=== PATIENT | female | born 1950 | race Caucasian/White ===

== ENCOUNTER 2023-01-02 18:21 | Emergency (ER) | payer MEDICARE, SELFPAY ==
--- NOTE | ~2023-01-02 | XR_ITS ---
EXAMINATION: Left shoulder and left humerus. CLINICAL INDICATIONS: Status post fall. COMPARISON: None. TECHNIQUE: Left shoulder 3 views and left humerus 2 views. FINDINGS: LEFT SHOULDER: There is mild loss of glenohumeral and AC joint space. No visible acute fracture, dislocation or subluxation seen. There is calcification seen at insertion of rotator cuff likely calcific tendinitis. LEFT HUMERUS: Visualized bony cortex in the medial of the left humerus is normal. No fracture or periosteal elevation. The soft tissues are normal. XR/XR humerus LT IMPRESSION: Mild degenerative changes left AC joint and glenohumeral joint. No acute fracture or dislocation. Suspect left rotator cuff tendinitis. Unremarkable left humerus.
--- NOTE | ~2023-01-02 | XR_ITS ---
EXAMINATION: Left shoulder and left humerus. CLINICAL INDICATIONS: Status post fall. COMPARISON: None. TECHNIQUE: Left shoulder 3 views and left humerus 2 views. FINDINGS: LEFT SHOULDER: There is mild loss of glenohumeral and AC joint space. No visible acute fracture, dislocation or subluxation seen. There is calcification seen at insertion of rotator cuff likely calcific tendinitis. LEFT HUMERUS: Visualized bony cortex in the medial of the left humerus is normal. No fracture or periosteal elevation. The soft tissues are normal. XR/XR shoulder LT min 2V IMPRESSION: Mild degenerative changes left AC joint and glenohumeral joint. No acute fracture or dislocation. Suspect left rotator cuff tendinitis. Unremarkable left humerus.
--- NOTE | 2023-01-02 19:06 | ED_ITS ---
HPI - Fall General Chief Complaint: Fall Stated Complaint: left shoulder injury/ parkinsons Time Seen by Provider: 01/02/23 21:41 Source: patient and family () Mode of arrival: ambulatory Limitations: no limitations History of Present Illness HPI Narrative: 72-year-old female who presents emergency department for evaluation of left shoulder pain after falling. The patient has a history of Parkinson's disease and she states that she has been falling frequently over the past month and has injured her left shoulder and ribs earlier in the month after a fall. Patient states that she has dyskinesia, stepped backwards, lost her balance and fell onto her left shoulder. She denied any head injury or loss of consciousness. She states she is having severe pain in her left shoulder which is worse with movement. She took tramadol for pain prior to coming to the emergency department Related Data Allergies Allergy/AdvReac Type Severity Reaction Status Date / Time No Known Allergies Allergy Verified 01/02/23 19:05 Review of Systems Review of Systems: Yes all other systems are reviewed and are negative [facility] Social History Social History Alcohol intake: never Smoked in Last 30 Days: No Use of substances other than those prescribed or required for medical reasons: No Advance Directives: No Advance Directives Information Provided: No Physical Exam Vital Signs: Vital Signs: Last Vital Signs Temp 97.9 F 01/02/23 19:09 Pulse 73 01/02/23 19:09 Resp 17 01/02/23 19:09 BP 172/102 H 01/02/23 19:09 Pulse Ox 98 01/02/23 19:09 O2 Del Method Room Air 01/02/23 19:09 BMI result Body Mass Index 23.9 Const: Other: General:Awake, alert, female patient, pleasant, cooperative, does not appear to be in distress HEENT: Head is normal cephalic and atraumatic, pupils equal round reactive light Chest: No chest wall tenderness Abdomen: No abdominal tenderness Back: No vertebral tenderness or paraspinal muscle tenderness Extremities: Patient has tenderness palpation of her left shoulder and left humerus. Range of motion is limited secondary to her Parkinson disease. Course Course Course Narrative: RME - 72 yo female with history of Parkinson's disease, dyskinesia, recurrent falls who presents to the ER for evaluation of LUE pain s/p recurrent falls onto her left side. She has fallen 4 times in the last 3 weeks. Saw her PCP and fractured 9th rib on the left. Today fell again onto left shoulder. Severe pain in the shoulder, upper back, elbow with limited ROM. Plan: XR shoulder and elbow Medical Decision Making Medical Decision Making MDM Narrative: 72-year-old female with history of Parkinson's disease who fell landing on her left shoulder. Patient's physical examination did reveal left shoulder left humerus pain. X-rays were obtained and revealed no acute fracture. Differential Diagnosis The differential diagnosis includes was not limited to left shoulder fracture, left humerus fracture, left shoulder contusion, left humerus contusion Independent Interpretation I performed an independent interpretation of an: Plain X-Ray Interpretation: My interpretation of the patient's left shoulder left units x-ray follow-up: No acute fracture Radiology Impression Discussion of test interpretation with radiology: I have reviewed the radiologist's reading. Radiologist Impression: XR shoulder LT min 2V IMPRESSION: Mild degenerative changes left AC joint and glenohumeral joint. No acute fracture or dislocation. Suspect left rotator cuff tendinitis. Unremarkable left humerus. Dictated By:Sridhar Wild MD Independent Historian Clinical information obtained from an independent historian. History obtained from or confirmed by: Spouse Prescription Management I considered prescription management with: Pain Medication Chronic Conditions Patient?s care impacted by: Other (Parkinson disease) Discharge Plan Discharge Clinical Impression: Contusion of left shoulder, initial encounter Fall Qualifiers: Encounter type: initial encounter Qualified Code(s): W19.XXXA - Unspecified fall, initial encounter Patient Disposition: Home, Self-Care Additional Instructions: The x-ray of your left shoulder revealed no broken bones which is very reassuring You most likely have a bruise to your shoulder which is causing her pain. Take ibuprofen 200 mg pills, 1 pills every 6 hours as needed for pain. Take Tylenol (acetaminophen) 325 mg pills, 2 pills every 6 hours as needed for pain. You can continue to take your tramadol as prescribed by your doctor for pain. You can take this medication with ibuprofen and with Tylenol. Follow-up with your doctor in 2 days. Please return to the emergency department if your symptoms get worse or if you develop any symptoms that are concerning to you.
[2023-01-02 19:09] VITALS: BP 172/102; PULSE 73; RESP 17; TEMP 36.6; O2SAT 98; BMI 23.9
--- NOTE | 2023-01-02 21:56 | PC.NURSE ---
nurse called to room pt stated that she wants sling removed as she has parkinson's, and absolutely needs to move my arm . sling removed, pending MD Keshawn whiteside
[2023-01-02 22:00] VITALS: BP 177/99; PULSE 94; RESP 18; O2SAT 97
--- NOTE | 2023-01-02 22:00 | PC.NURSE ---
per MD Liao, sling no longer necessary for pt given medical history.
== END 2023-01-02 22:06 | disposition home or self-care (01) ==
PROVIDERS: Emergency Provider Emergency Medicine Emergency Medical Services; PCP Internal Medicine
DX: S40.012A Contusion of left shoulder, initial encounter (principal); W01.0XXA Fall on same level from slipping, tripping and stumbling without subsequent striking against object, initial encounter; G20 Parkinson's disease; R29.6 Repeated falls; Z91.81 History of falling; Y93.9 Activity, unspecified; Y92.9 Unspecified place or not applicable; Y99.9 Unspecified external cause status
CPT/HCPCS: 73030; 73060; 99283; 99284

== ENCOUNTER 2024-01-04 10:50 | Emergency (ER) | payer MEDICARE, SELFPAY ==
--- NOTE | ~2024-01-04 | XR_ITS ---
EXAMINATION: XR CHEST CLINICAL INFORMATION: Failure to thrive. COMPARISON: None available. TECHNIQUE: Frontal view of the chest was obtained. FINDINGS: There are generators overlying the right and left chest. Leads extend cranially towards the neck. The heart is normal in size. There is mild calcific atherosclerotic disease of the aorta. There is no consolidation within either lung to indicate pneumonia. No pleural effusion. No pneumothorax. No acute osseous abnormality. XR/XR chest 1V IMPRESSION: No acute cardiopulmonary disease.
--- NOTE | ~2024-01-04 | CT_ITS ---
EXAMINATION: CT head/brain wo IV con CLINICAL INFORMATION: Reason for Exam unsteady gait COMPARISON: None. TECHNIQUE: Contiguous axial imaging was performed from the skull base to vertex without intravenous contrast. Sagittal and coronal reformatted images were obtained. This CT examination was performed using dose optimization techniques as appropriate, variously including the following: * Automated exposure control * Adjustment of mA and/or kV according to patient size (this includes techniques or standardized protocols for targeted exams where dose is matched to indication/reason for exam; i.e. extremities or head) Use of iterative reconstruction technique DLP: 27 mGy-cm FINDINGS: Bifrontal approach deep brain stimulator leads terminate in the subthalamic region bilaterally. Associated streak artifact degrades locoregional evaluation. Within this constraint, no acute intracranial hemorrhage or territorial loss of stevenson-white differentiation. No midline shift. The basal cisterns are preserved. The ventricles and sulci are appropriate in size and configuration for the patient's stated age. Periventricular and subcortical white matter hypodensity is nonspecific but likely represents chronic microvascular ischemic change. No depressed calvarial fracture. The partially visualized paranasal sinuses are well-aerated. The mastoid air cells are essentially clear. Intracranial atherosclerotic calcification is noted. CT/CT head/brain wo IV con IMPRESSION: Bifrontal approach deep brain stimulator leads which terminate in the subthalamic region bilaterally. No acute intracranial hemorrhage or territorial loss of stevenson-white differentiation.
[2024-01-04 10:53] VITALS: BP 172/86; PULSE 81; RESP 16; TEMP 37.1; O2SAT 97; BMI 24.0
[2024-01-04 12:26] LABS: MANUAL DIFF FLAG NO
[2024-01-04 12:27] LABS: Basophils Percent Auto 0.2 % (0-2); Eosinophils Percent Auto 0.5 % (0-4); Hematocrit 37.5 % (37.0-47.0); Imm Gran Abs Auto 0.01 X10*3/uL (0.00-0.03); Imm Gran Pct Auto 0.2 % (0.0-0.4); Lymphocytes Absolute Auto 0.9 X10*3/uL (1.2-4.9); Lymphocytes Percent Auto 14.5 % (20-40); Mean Corpuscular HGB Conc 34.7 g/dl (31.0-35.0); Mean Corpuscular Hemoglobin 30.4 pg (27.0-33.0); Mean Corpuscular Volume 87.6 fL (80.0-98.0); Mean Platelet Volume 9.4 fL (9.4-12.3); Monocytes Absolute Auto 0.4 X10*3/uL (0.1-1.2); Monocytes Percent Auto 6.9 % (2-11); Neutrophils Absolute Auto 4.7 x10*3/uL (2.0-8.3); Neutrophils Percent Auto 77.7 % (45-73); Platelet Count 277 X10*3/uL (160-400); Red Blood Count 4.28 X10*6/uL (4.20-5.50); White Blood Count 6.1 X10*3/uL (4.8-10.8)
[2024-01-04 12:45] LABS: Alanine Aminotransferase < 5 U/L (0-31); Albumin Level 4.1 g/dL (3.5-5.0); Alkaline Phosphatase 123 U/L (39-117); Anion Gap 13 (12-20); Aspartate Amino Transferase 10 U/L (5-31); Bilirubin Total 1.5 mg/dL (0.0-1.0); Blood Urea Nitrogen 16 mg/dL (9-16); Calcium 10.4 mg/dL (8.4-10.2); Carbon Dioxide 26 mmol/L (22-29); Chloride 102 mmol/L (96-108); Creatinine Clr Calc Pharmacy 62.7; Estimated Glomerular Filt Rate > 60; Glucose Random 98 mg/dL (60-115); Potassium 4.5 mmol/L (3.3-5.1); Sodium 136 mmol/L (135-145); Total Protein 6.5 g/dL (6.5-8.0)
[2024-01-04 14:29] LABS: Appearance Urine Clear; Color Urine Dark Yellow; Glucose Urine UA Negative (Negative); Leukocyte Esterase Urine Small (1+) (Negative); Nitrite Urine Negative (Negative); PH 5.5 (5.0-9.0); Specific Gravity - Urine >= 1.030 (1.005-1.025); UMIC TRIGGER UACC YES; Urine Blood Negative (Negative); Urine Ketones 15 mg/dL (Negative); Urine Protein Trace mg/dL (Neg-Trace)
[2024-01-04 14:43] LABS: Bacteria Urine None Seen (None Seen); Calcium Oxalate Crystals Urine Present; Hyaline Casts Urine 0-2 /LPF (0-2); RBC Urine 0-2 /HPF (0-2); Squamous Epithelial Cell Urine 0-2 /HPF (0-2); UACC Culture Trigger YES; WBC Urine 0-5 /HPF (0-5)
--- NOTE | 2024-01-04 20:12 | ED.GENADULT ---
HPI - General Adult General Chief complaint: General Medical Stated complaint: diff moving Time Seen by Provider: 01/04/24 19:52 Source: patient and family (Daughter) Mode of arrival: ambulatory Limitations: no limitations History of Present Illness ED Provider: DR. Enrique HPI narrative: 72-year-old female who presented to the emergency department with her daughter for complaint multiple falls at home and deconditioning, patient with history of Parkinson's disease lives home with her who is unable to care for her, family reported increased cognitive deterioration, worsening of patient's Parkinson's and family seeking placement where patient can get the appropriate help. Last fall was about 3 weeks ago at home causing left arm injury patient has been following with orthopedic for her arm injury. Related Data Home Medications ?Medication ?Instructions ?Recorded ?Confirmed bupropion HCl 100 mg tablet,12 hr 100 mg PO DAILY 01/04/24 01/04/24 sustained-release carbidopa 25 mg-levodopa 100 mg 1 tab PO DIRECTED PRN parkinsons 01/04/24 01/04/24 tablet carbidopa ER 48.75 mg-levodopa 195 2 cap PO Q2H 01/04/24 01/04/24 mg capsule,extended release (Rytary) metoprolol succinate 25 mg 25 mg PO DAILY 01/04/24 01/04/24 tablet,extended release 24 hr Allergies Allergy/AdvReac Type Severity Reaction Status Date / Time amantadine Allergy Unknown Verified 01/04/24 10:56 selegiline Allergy Unknown Verified 01/04/24 10:56 Review of Systems Review of Systems: All other systems are reviewed and are negative Constitutional: Reports as per HPI and Reports no additional constitutional complaints Eyes: Reports as per HPI and Reports no additional eye complaints Reports system reviewed and no additional complaints, except as documented Cardiovascular: Reports as per HPI and Reports no additional cardiovascular complaints Respiratory: Reports as per HPI and Reports no additional respiratory complaints Gastrointestinal: Reports as per HPI and Reports no additional gastrointestinal complaints Genitourinary: Reports no additional female genitourinary complaints Musculoskeletal: Reports no additional musculoskeletal complaints Skin/Breast: Reports system reviewed and no additional complaints, except as docu Psychiatric: Reports no additional psychiatric complaints Endocrine: Reports no additional endocrine complaints Hematologic/Lymphatic: Reports no additional hematologic/lymphatic complaints Allergic/Immunologic: Reports no additional allergic/immunologic complaints Reports system reviewed and no additional complaints, except as documented and Reports Abnormal speech present [facility] Social History Social History Alcohol intake: never Smoked in Last 30 Days: No Use of substances other than those prescribed or required for medical reasons: No Advance Directives: No Advance Directives Information Provided: Yes Do you have a plan to hurt others: No Plan Physical Exam ED Vital Signs: Vital Signs - 24 hr 01/04/24 10:53 01/04/24 21:36 01/04/24 22:30 Temperature 98.8 F 98.2 F 98.7 F Pulse Rate 81 71 72 Respiratory Rate 16 18 16 Blood Pressure 172/86 H 148/61 H 151/72 H Pulse Oximetry 97 96 98 Oxygen Delivery Method Room Air Room Air Room Air BMI result Body Mass Index 24.0 Vital signs have been reviewed and appear to be correct. Blood pressure elevated. Heart rate normal. Respiratory rate normal. Temperature normal. Oxygen saturation normal. Appearance: Alert. Oriented X3. No acute distress. Head: Normal external exam. Normocephalic. Atraumatic. No Cash signs noted. No raccoon eyes noted Eyes: PERRLA. EOMI. Conjunctiva and sclera normal. Eyelids normal. ENT: TM's Normal. Pharynx normal. Uvula midline. Moist mucous membranes. No trismus noted. No drooling noted. No muffled voice noted. Neck: Normal inspection. Neck supple. FROM. No adenopathy. Thyroid Normal. No meningeal signs. No neck mass noted. CVS: Normal heart rate and rhythm. Heart sound normal. No murmurs noted. Pulses normal throughout. Respiratory: No respiratory distress. Painless inspiration. Breath sounds normal. No wheezes/rales/rhonchi noted. Chest nontender. No accessory muscle usage noted or decreased air movement noted. Abdomen: Soft and nontender. Bowel sounds normal in all 4 quadrants. No distention noted. No organomegaly noted. No visible injury noted. Back: No CVA tenderness. Full range of motion noted. Skin: Skin warm and dry. Normal skin color. Normal skin turgor. No rashes/lesions/lacerations noted. Extremities: No lower extremity edema. Extremities exhibit normal range of motion. Extremities nontender. Neuro: Oriented X 3. Cranial nerve exam: II-XII are grossly intact No motor deficit. No sensory deficit. Reflexes normal. Course Reevaluation(s) Reevaluation #1: 73-year-old female with history of Parkinson's and multiple fall at home family reported patient is progressively deconditioning and needs placement. Patient is medically cleared, will start patient on physician observation, case management consultation, PT consultation. Time: 22:00 Medications Administered Generic Name Dose Route Start Last Admin Trade Name Freq PRN Reason Stop Dose Admin Pt Own (Carbidopa- 2 cap 01/04/24 22:00 01/04/24 22:05 Levodopa [Rytary] 48 PO 2 cap .75-195 Mg Capsule, Q2H ANNA Administration Extended Relea Medical Decision Making Differential Diagnosis Differential Diagnoses: The differential diagnosis associated with the presentation includes (UTI, electrolyte derangement, severe anemia, pneumonia, intracranial pathology, medical clearance.) Admission/Observation Consideration of admission/observation: Escalation of care including admission/observation considered Lab Data MDM Lab Attestation statement: I reviewed the patient's lab results. 01/04/24 12:22 01/04/24 12:22 Labs: Lab Results 01/04/24 01/04/24 Range/Units 12:22 14:23 WBC 6.1 (4.8-10.8) X10*3/uL RBC 4.28 (4.20-5.50) X10*6/uL Hgb 13.0 (12.0-16.0) g/dl Hct 37.5 (37.0-47.0) % MCV 87.6 (80.0-98.0) fL MCH 30.4 (27.0-33.0) pg MCHC 34.7 (31.0-35.0) g/dl RDW 13.0 (11.0-16.0) % Plt Count 277 (160-400) X10*3/uL MPV 9.4 (9.4-12.3) fL Immature Gran % (Auto) 0.2 (0.0-0.4) % Neut % (Auto) 77.7 H (45-73) % Lymph % (Auto) 14.5 L (20-40) % [place] % (Auto) 6.9 (2-11) % Eos % (Auto) 0.5 (0-4) % Baso % (Auto) 0.2 (0-2) % Lymph # (Auto) 0.9 L (1.2-4.9) X10*3/uL [place] # (Auto) 0.4 (0.1-1.2) X10*3/uL Eos # (Auto) 0.0 (0.0-0.4) X10*3/uL Baso # (Auto) 0.0 (0.0-0.2) X10*3/uL Abs Immat Gran (auto) 0.01 (0.00-0.03) X10*3/uL Absolute Neuts (auto) 4.7 (2.0-8.3) x10*3/uL Absolute Nucleated RBC 0.000 (0.0-0.012) X10*3/uL Nucleated RBC % (auto) 0.0 (0.0-0.2) /100WBC Sodium 136 (135-145) mmol/L Potassium 4.5 (3.3-5.1) mmol/L Chloride 102 (96-108) mmol/L Carbon Dioxide 26 (22-29) mmol/L Anion Gap 13 (12-20) BUN 16 (9-16) mg/dL Creatinine 0.71 (0.5-1.4) mg/dL Estim Creat Clear Calc 62.7 Estimated GFR > 60 Random Glucose 98 (60-115) mg/dL Calcium 10.4 H (8.4-10.2) mg/dL Total Bilirubin 1.5 H (0.0-1.0) mg/dL AST 10 (5-31) U/L ALT < 5 (0-31) U/L Alkaline Phosphatase 123 H (39-117) U/L Total Protein 6.5 (6.5-8.0) g/dL Albumin 4.1 (3.5-5.0) g/dL Urine Color Dark Yellow Urine Appearance Clear Urine pH 5.5 (5.0-9.0) Ur Specific [place] >= 1.030 H (1.005-1.025) Urine Protein Trace (Neg-Trace) mg/dL Urine Glucose (UA) Negative (Negative) mg/dL Urine Ketones 15 (Negative) mg/dL Urine Blood Negative (Negative) Urine Nitrite Negative (Negative) Ur Leukocyte Esterase Small (1+) H (Negative) Urine RBC 0-2 (0-2) /HPF Urine WBC 0-5 (0-5) /HPF Ur Squamous Epith Cells 0-2 (0-2) /HPF Calcium Oxalate Crystal Present Urine Bacteria None Seen (None Seen) Hyaline Casts 0-2 (0-2) /LPF Independent Interpretation I performed an independent interpretation of an: Plain X-Ray (Chest: No acute intrathoracic pathology.) and CT Scan (Head: Bifrontal approach deep brain stimulator leads which terminate in the subthalamic region bilaterally. No acute intracranial hemorrhage or territorial loss of stevenson-white differentiation. ) Radiology Impression Discussion of test interpretation with radiology: I have reviewed the radiologist's reading. Discharge Plan Discharge Clinical Impression: Adult failure to thrive, Multiple falls, Parkinson's disease Patient Disposition: Still a Patient Prescriptions: No Action bupropion HCl 100 mg tablet sustained-release 12 hr 100 mg PO DAILY metoprolol succinate 25 mg tablet extended release 24 hr 25 mg PO DAILY Rytary 48.75-195 mg capsule, extended release 2 cap PO Q2H carbidopa-levodopa 25-100 mg Tablet 1 tab PO DIRECTED MDD 6 tabs PRN (Reason: parkinsons) Rx Instructions: Take as needed up to 6 tabs per day. Print Language: Kiswahili
[2024-01-04 21:36] VITALS: BP 148/61; PULSE 71; RESP 18; TEMP 36.8; O2SAT 96
--- NOTE | 2024-01-04 21:53 | MHC.CM.ED ---
Addendum entered by Fatou Rachel 01/04/24 22:27: HCP at home. CM requested that bring it in. HCP is Santiago Pimentel ([phone]). Original Note: CM met with patient and family at the request of Dr. Enrique. Pt has had Parkinson's for 30 years. Pt lives with her . She has a walker, rollator and wheelchair. Her bathroom is handicapped accessible. 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 Pt is having increased falls at home, worse over the last 3 weeks. She is very deconditioned, as she is afraid to fall, so she has been moving less. Pt sees a Parkinson's specialist in [place], Dr. Apollo Sutton. Patient and family are requesting more intensive rehab. PT is pending. Will place referrals to acute rehab facilities. Pt also is concerned about her swallowing, as she had some choking recently when eating rice. Pt denies any difficulty with liquids. CM will request a swallow evaluation. CM contact card given to both , Santiago and daughter, Kelin ([phone]). CM will follow for discharge planning.
[2024-01-04 22:30] VITALS: BP 151/72; PULSE 72; RESP 16; TEMP 37.1; O2SAT 98
--- NOTE | 2024-01-04 22:52 | PC.NURSE ---
Addendum entered by Danica Kapadia RN 01/05/24 04:52: Late midnight hour the patient was heard abruptly crying out from her room. Staff immediately responded to the pt's room to assess the situation. The patient was observed laying in bed with her eyes closed, swatting the air in front of her and shouting It's hurting me ! The patient appeared to have been woken by staff at this time, as evidenced by opening her eyes and looking around the room, appearing disoriented. Pt was tearful, reassured that she was safe and active listening was provided. Orientation reassessed and mentation maintained per automobile service writer's initial assessment; once calm pt verbalized to this automobile service writer that she knew she was in the hospital and was able to state the correct year when asked. The patient was able to fall back asleep for a short period after this, though has continued to intermittently cry out this morning. Pt tearful, appearing anxious, stated to automobile service writer I was having a nightmare and I haven't slept in days . Covering Dr. Hooker notified, 1x ativan ordered, discussed with patient who was agreeable to taking. Patient resting in bed on 05:00 rounding. Breathing even and unlabored without distress, RR 16. Original Note: Patient arrived to ED overflow from the main ED at 22:28. Patient is alert, oriented x4, forgetful during conversation requiring some cueing. Soft spoken. Patient here due to frequent falls at home related to PMHx of Parkinson's. Pt's daughter and present at bedside report worsening Parkinson's and cognitive deterioration and are seeking placement/LTC. Mild tremors visible. Patient is on her home Rytary ER q2h as ordered per SEP; this home med was previously verified and barcoded by pharmacy prior to arrival. Pt's daughter provided automobile service writer with pt's home dose of 100mg buproprion. Market Analyst called and spoke with Jamie from pharmacy re: med rec and pt's buproprion; Jamie stated med rec was done by previous ED RN and that pt's buproprion is not stocked and would need to be verified by pharmacy. Market Analyst sent this bottle of medication to pharmacy with pharmacy teacher tonight for barcoding for morning dose. Pt is deconditioned, stand and pivot with 2+ assist from stretcher to bed. Patient reports her left arm is sometimes tender , states it is because of a fall 3 weeks ago; pt following with ortho per MD note. Scattered bruising noted to BUE on arrival, soft to palpation. Pt denies pain or other acute issues at this time. LUE elevated on pillow. RUE used for BPs. VSS. +Radial and dp pulses. -edema. Breathing is even and unlabored without distress on RA. Patient reports difficulty chewing/swallowing some foods, states most recently rice, and reports that she does okay with water with a straw and taking her medications one at a time. Nursing bedside swallow done on arrival, pt passed it without issue. Purewick placed for voiding due to limited strength and mobility after patient was educated on and agreeable to it. Patient educated adult basic education manager ruth, to call staff for assistance with eating, repositioning or other needs for safety. Bed alarm on and in room camera in place. Call ruth within reach and educated on use. Family present at bedside at this time.
[2024-01-05] VITALS (7 sets, daily range): BP systolic 115–122; BP diastolic 42–75; PULSE 58–63; RESP 16–20; TEMP 36.4–36.7; O2SAT 98
[2024-01-05] MEDS: LORazepam 1 MG TABLET 2 MG PO (04:06)
--- NOTE | 2024-01-05 04:15 | MHC.EDTECH ---
pt was 1 assist to the commode and back to the bed
[2024-01-05] MEDS: Metoprolol Succinate ER 25 MG TAB.ER.24H PO (08:32)
--- NOTE | 2024-01-05 13:30 | MHC.CM.ED ---
Addendum entered by Fatou Rachel 01/05/24 15:01: [facility] has offered a bed and patient has accepted. Patient and family are thrilled. Daughter is aware. She will tell her father. He is on route to the hospital. BLS booked with [facility] for 5pm Primary RN and Provider aware. Med nec/face sheet and ED worksheet with secretary book keeper. Original Note: Met with patient and family. PT is recommending acute rehab. Obtained HCP. Uploaded both HCP and PT evaluation in [facility]. Waiting for bed offers. CM following for discharge planning.
--- NOTE | 2024-01-05 17:15 | MHC.EDTECH ---
pt ate 25% of her dinner
== END 2024-01-05 19:00 ==
PROVIDERS: Emergency Provider Emergency Medicine; PCP Internal Medicine
DX: R62.7 Adult failure to thrive (principal); Z68.24 Body mass index [BMI] 24.0-24.9, adult; R29.6 Repeated falls; R53.81 Other malaise; G20.A1 Parkinson's disease without dyskinesia, without mention of fluctuations; Z79.899 Other long term (current) drug therapy
CPT/HCPCS: 36415; 70450; 71045; 80053; 81001; 85025; 87086; 97162; 99284; 99285

== ENCOUNTER 2024-04-10 18:29 | Emergency (ER) | payer MEDICARE, SELFPAY ==
[2024-04-10 18:54] VITALS: BP 128/71; PULSE 73; RESP 16; TEMP 37.1; O2SAT 98; BMI 18.9
--- NOTE | 2024-04-10 18:55 | ED_ITS ---
HPI - General Adult General Chief complaint: Chest Pain Stated complaint: chest pain , high blood pressures Time Seen by Provider: 04/10/24 20:38 Source: patient and family Mode of arrival: wheelchair Limitations: no limitations History of Present Illness ED Provider: giancarlo STEELE narrative: Patient is here severe Parkinson disease with deep brain stimulator bilateral under increased stress lately complaining unable to sleep comes here for chest pain for last few days nonspecific chest pain no radiation of the pain no nausea no vomiting no shortness a breath patient is very anxious on arrival in patient was able to ambulate now she is mostly dependent on her for any activity Related Data Home Medications ?Medication ?Instructions ?Recorded ?Confirmed bupropion HCl 100 mg tablet,12 hr 100 mg PO DAILY 01/04/24 01/04/24 sustained-release carbidopa 25 mg-levodopa 100 mg 1 tab PO DIRECTED PRN parkinsons 01/04/24 01/04/24 tablet carbidopa ER 48.75 mg-levodopa 195 2 cap PO Q2H 01/04/24 01/04/24 mg capsule,extended release (Rytary) metoprolol succinate 25 mg 25 mg PO DAILY 01/04/24 01/04/24 tablet,extended release 24 hr Previous Rx's ?Medication ?Instructions ?Recorded lorazepam 0.5 mg tablet (Ativan) 0.5 mg PO BID PRN anxiety/sleep 04/10/24 #14 tabs Allergies Allergy/AdvReac Type Severity Reaction Status Date / Time amantadine Allergy Unknown Verified 04/10/24 18:58 selegiline Allergy Unknown Verified 04/10/24 18:58 Review of Systems 2 Review of Systems: Yes all other systems are reviewed and are negative [facility] Social History Social History Alcohol intake: never Advance Directives: Yes Advance Directives on File: Yes Advance Directives Date on File: 01/05/24 Physical Exam ED Vital Signs: Vital Signs - 24 hr 04/10/24 18:54 04/10/24 23:40 Temperature 98.8 F 98.1 F Pulse Rate 73 78 Respiratory Rate 16 16 Blood Pressure 128/71 132/71 Pulse Oximetry 98 97 Oxygen Delivery Method Room Air Room Air BMI result Body Mass Index 18.9 Appearance: Alert. Oriented X3. No acute distress. Anxious Eyes: PERRLA, No Nystagmus ENT: Pharynx normal. Oral Mucosa moist Neck: Normal inspection. Neck supple. CVS: Normal heart rate and rhythm. Pulses normal. L scapula Abdomen: Soft and nontender. Bowel sounds are present, no mass palpable, no CVA tenderness Skin: Skin warm and dry. Normal skin color. Normal skin turgor. Extremities: No lower extremity edema. No calf tenderness Neuro: Oriented X 3. No motor deficit. No sensory deficit.No cerebellar signs , cranial nerves II-XII intact Course Course Course Narrative: This is a rapid medical exam performed by David Bernabe NP: Additional HPI, ROS, PE not included below will be deferred to primary provider. Patient is a 73-year-old female with history of Parkinson's, HTN presenting to the ED with complaint of chest pain and high BP readings at home. States pain radiates to right arm. Plan: EKG, labs, CXR Medications Administered Discontinued Medications Generic Name Dose Route Start Last Admin Trade Name Freq PRN Reason Stop Dose Admin Lorazepam 1 mg 04/10/24 20:55 04/10/24 21:16 Lorazepam 1 Mg Tablet PO 04/10/24 20:56 1 mg ONCE ONE Administration Medical Decision Making Medical Decision Making [facility] Narrative: Patient has Parkinson disease with increased anxiety and stress was able to ambulate about 3 months ago now she can not ambulate because of worsening of the paroxysmal disease and left scapular injury comes here with atypical chest pain unable to the EKG because of the stimulator presence cardiac enzymes troponin were negative chest pain was atypical in character will discharge patient home patient responded to Ativan relax no chest pain after time of discharge Lab Data [facility] Lab Attestation statement: I reviewed the patient's lab results. 04/10/24 19:20 04/10/24 19:21 Labs: Lab Results 04/10/24 04/10/24 Range/Units 19:20 19:21 WBC 4.9 (4.8-10.8) X10*3/uL RBC 3.67 L (4.20-5.50) X10*6/uL Hgb 10.3 L D (12.0-16.0) g/dl Hct 30.9 L (37.0-47.0) % MCV 84.2 (80.0-98.0) fL MCH 28.1 (27.0-33.0) pg MCHC 33.3 (31.0-35.0) g/dl RDW 20.1 H (11.0-16.0) % Plt Count 329 (160-400) X10*3/uL MPV 10.3 (9.4-12.3) fL Immature Gran % (Auto) 0.2 (0.0-0.4) % Neut % (Auto) 65.0 (45-73) % Lymph % (Auto) 25.7 (20-40) % [place] % (Auto) 8.1 (2-11) % Eos % (Auto) 0.6 (0-4) % Baso % (Auto) 0.4 (0-2) % Lymph # (Auto) 1.3 (1.2-4.9) X10*3/uL [place] # (Auto) 0.4 (0.1-1.2) X10*3/uL Eos # (Auto) 0.0 (0.0-0.4) X10*3/uL Baso # (Auto) 0.0 (0.0-0.2) X10*3/uL Abs Immat Gran (auto) 0.01 (0.00-0.03) X10*3/uL Absolute Neuts (auto) 3.2 (2.0-8.3) x10*3/uL Absolute Nucleated RBC 0.000 (0.0-0.012) X10*3/uL Nucleated RBC % (auto) 0.0 (0.0-0.2) /100WBC PT 11.2 (10.9-12.4) SEC INR 1.0 (0.9-1.1) Sodium 133 L (135-145) mmol/L Potassium 4.4 (3.3-5.1) mmol/L Chloride 101 (96-108) mmol/L Carbon Dioxide 24 (22-29) mmol/L Anion Gap 12 (12-20) BUN 15 (9-16) mg/dL Creatinine 0.71 (0.5-1.4) mg/dL Estim Creat Clear Calc 57.2 Estimated GFR > 60 Random Glucose 88 (60-115) mg/dL Calcium 9.7 D (8.4-10.2) mg/dL Magnesium 1.7 (1.6-2.6) mg/dL Total Bilirubin 1.4 H (0.0-1.0) mg/dL AST 5 (5-31) U/L ALT < 5 (0-31) U/L Alkaline Phosphatase 94 (39-117) U/L Troponin I High Sens 2.7 (<3.5-17.0) ng/L Total Protein 5.6 L (6.5-8.0) g/dL Albumin 3.7 (3.5-5.0) g/dL Influenza Type A (PCR) NEGATIVE (Negative) Influenza Type B (PCR) NEGATIVE (Negative) RSV RNA Qual (PCR) NEGATIVE (Negative) SARS-CoV-2 RNA (RT-PCR) NEGATIVE (Negative) Discharge Plan Discharge Clinical Impression: Atypical chest pain, Anxiety Patient Disposition: Home, Self-Care Instructions: Noncardiac Chest Pain (ED), Anxiety (ED) Additional Instructions: Your chest pain is likely from anxiety Take anxiety medication once or twice a day as needed Follow with your PCP Prescriptions: New lorazepam [Ativan] 0.5 mg tablet 0.5 mg PO BID PRN (Reason: anxiety/sleep) Qty: 14 0RF No Action bupropion HCl 100 mg tablet sustained-release 12 hr 100 mg PO DAILY metoprolol succinate 25 mg tablet extended release 24 hr 25 mg PO DAILY Rytary 48.75-195 mg capsule, extended release 2 cap PO Q2H carbidopa-levodopa 25-100 mg Tablet 1 tab PO DIRECTED MDD 6 tabs PRN (Reason: parkinsons) Rx Instructions: Take as needed up to 6 tabs per day. Interventions: ED Discharge Assessment Last Done: 04/10/24 23:40 Discharge Date/Time: 04/10/24 23:41 Print Language: Khmer
--- NOTE | 2024-04-10 19:05 | PC.NURSE ---
Multiple attempts to obtain EKG. Due to machine malfunction and patient's tremors, contractures, and spasming, unable to obtain read. Provider (LINK Bernabe) & charger operator aware.
[2024-04-10 19:28] LABS: MANUAL DIFF FLAG NO
[2024-04-10 19:32] LABS: Basophils Percent Auto 0.4 % (0-2); Eosinophils Percent Auto 0.6 % (0-4); Hematocrit 30.9 % (37.0-47.0); Hemoglobin 10.3 g/dl (12.0-16.0); Imm Gran Abs Auto 0.01 X10*3/uL (0.00-0.03); Imm Gran Pct Auto 0.2 % (0.0-0.4); Lymphocytes Absolute Auto 1.3 X10*3/uL (1.2-4.9); Lymphocytes Percent Auto 25.7 % (20-40); Mean Corpuscular HGB Conc 33.3 g/dl (31.0-35.0); Mean Corpuscular Hemoglobin 28.1 pg (27.0-33.0); Mean Corpuscular Volume 84.2 fL (80.0-98.0); Mean Platelet Volume 10.3 fL (9.4-12.3); Monocytes Absolute Auto 0.4 X10*3/uL (0.1-1.2); Monocytes Percent Auto 8.1 % (2-11); Neutrophils Absolute Auto 3.2 x10*3/uL (2.0-8.3); Platelet Count 329 X10*3/uL (160-400); Red Blood Count 3.67 X10*6/uL (4.20-5.50); Red Cell Distribution Width 20.1 % (11.0-16.0); White Blood Count 4.9 X10*3/uL (4.8-10.8)
[2024-04-10 19:41] LABS: Prothrombin Time 11.2 SEC (10.9-12.4)
--- OUTSIDE RECORDS SUMMARY | 2024-04-10 19:53 | XMS_ITS | Continuity of Care Document ---
Author Organization [facility] Address [address] [place] [address]- Care Team Providers Care Tennis Player Name Role Phone Not on Staff, PCP Primary Care Physician Unavail able Encounter 12/26/23 - 01/02/24 [facility] [address], [address] [place] [address]- Attending Physician: Dru Joyce PA-C Admitting Physician: Dru Joyce PA-C Referring Physician: Dru Joyce PA-C Allergies, Adverse Reactions, Alerts Substance Reaction Severity Status selegiline Edema Myalgia, unspecified site Active Immunizations Given and Recorded Vaccine Date Status Refusal Reason influenza virus vaccine, inactivated 1 07/22/12 Gi bin influenza virus vaccine, inactivated 2 05/19/09 Gi bin influenza virus vaccine, inactivated 06/05/06 Give n Diphth-Tetanus Toxoids Adsorbed(oldterm) 06/05/06 Given 1[facility] Medications lorazepam 1 mg oral tablet 0.5 tablet = 0.5 mg, By Mouth, Daily, PRN as needed for anxiety, 0 Refills, Maintenance Start Date: 08/17/11 Status: Ordered Rytary 48.75 mg-195 mg oral capsule, extended release 2 capsule, By Mouth, Every 2 hours, 0 Refills, Maintenance, 11/05/15 9:48:52 Start Date: 11/05/15 Status: Ordered Sinemet 25 mg-100 mg oral tablet See Instructions, 22 tabs every 3 hrs, 0 Refills, Maintenance Start Date: 09/12/07 Status: Ordered Wellbutrin SR 100 mg oral tablet, extended release 1 tablet = 100 mg, By Mouth, Daily, 0 Refills, Maintenance Start Date: 08/17/11 Status: Ordered Problem List Condition Confirmation Course Effective Dates Status Health [facility] Informant Leg edema Confirmed 2004 Active Parkinson's disease Confirmed 2000 Active Results Radiology Reports * Exam Date Time Procedure Performing Provider Status 12/26/23 2:43 PM Humerus Min 2 Views Left Fatimah Etses Viktor (Verified) Notes: (Humerus Min 2 Views Left) Reason For Exam: arm pain RESULT: Humerus Min 2 Views Left Humerus Min 2 Views Left, 2 views Reason: arm pain COMPARISON: None. FINDINGS: Limited examination due to the inability of the patient to fully cooperate with the examination. The proximal two thirds of the left humerus show no acute fractures or dislocation. The left elbow is not imaged optimally. It appears grossly normal. If there is any suspicion of acute abnormality involving the left elbow, a CT of the area should be considered. Normal soft tissues. IMPRESSION: The proximal two thirds of the left humerus show no acute abnormality. Suboptimal evaluation of the left elbow as described above. WSN: [id number] Ordering Physician: Dru Joyce PA-C Dictated By: Levar Nixon MD, V Dictated Date/Time: 12/27/23 9:20 am Reviewed By: Levar Nixon MD, V Signed By: Levar Nixon MD, V Signed Date/Time: 12/27/23 9:20 am Transcribed By: BASILIO Transcribed Date/Time: 12/27/23 9:17 am Patient Care team information Care Team Personnel Name: Not on Staff, PCP Position: S Physician (General Medicine) Member Role: PCP Care Team Related Persons Name: MARIA VICTORIA HATHAWAY Address: [address] [address] Name: CELY MORTON Address: home [address] [place] [address]
[2024-04-10 19:55] LABS: Alanine Aminotransferase < 5 U/L (0-31); Albumin Level 3.7 g/dL (3.5-5.0); Alkaline Phosphatase 94 U/L (39-117); Anion Gap 12 (12-20); Aspartate Amino Transferase 5 U/L (5-31); Bilirubin Total 1.4 mg/dL (0.0-1.0); Blood Urea Nitrogen 15 mg/dL (9-16); Calcium 9.7 mg/dL (8.4-10.2); Carbon Dioxide 24 mmol/L (22-29); Chloride 101 mmol/L (96-108); Creatinine Clr Calc Pharmacy 57.2; Estimated Glomerular Filt Rate > 60; Glucose Random 88 mg/dL (60-115); Magnesium 1.7 mg/dL (1.6-2.6); Potassium 4.4 mmol/L (3.3-5.1); Sodium 133 mmol/L (135-145); Total Protein 5.6 g/dL (6.5-8.0)
[2024-04-10 19:58] LABS: Troponin-I High Sensitivity 2.7 ng/L (<3.5-17.0)
[2024-04-10 20:09] LABS: Influenza A PCR NEGATIVE (Negative); Influenza B PCR NEGATIVE (Negative); Resp Syncy Virus RNA Qual PCR NEGATIVE (Negative); SARS COV2 PCR INHOUSE NEGATIVE (Negative)
--- NOTE | 2024-04-10 20:18 | PC.NURSE ---
Attempted EKG in ED with no success, unable to obtain read d/t patient's tremors/contracture. ED provider made aware.
--- NOTE | 2024-04-10 21:09 | MHC.EDTECH ---
unable to complete EKG due to patient having DDS devices for neurotransmitters. aware
[2024-04-10] MEDS: LORazepam 1 MG TABLET PO (21:16)
[2024-04-10 23:38] VITALS: PULSE 73
[2024-04-10 23:40] VITALS: BP 132/71; PULSE 78; RESP 16; TEMP 36.7; O2SAT 97
== END 2024-04-10 23:41 | disposition home or self-care (01) ==
PROVIDERS: Registered Nurse Emergency; Emergency Provider Internal Medicine; PCP Internal Medicine
DX: R07.89 Other chest pain (principal); F41.9 Anxiety disorder, unspecified; Z03.818 Encounter for observation for suspected exposure to other biological agents ruled out
CPT/HCPCS: 0241U; 80053; 83735; 84484; 85025; 85610; 99283; 99284